=== PATIENT | male | born 1970 | race Caucasian/White ===

== ENCOUNTER 2019-02-08 06:37 | Emergency (ER) | payer OTHER ==
[~2019-02-08] VITALS: Ht 172.7 cm; Wt 90.7 kg
[~2019-02-08 06:37] MED LIST: CHILDREN'S ASPI81 MG PO; LISINOPRIL10 MG PO; TRAZODONE 150150 M1 PO
[2019-02-08] MEDS ORDERED: FLEXERIL PO (06:42)
[2019-02-08 07:24] LABS: HEMATOCRIT 39.8 % (42.0-52.0); RBC 3.76 mil/uL (4.50-6.00)
[2019-02-08 07:26] LABS: ABSOLUTE BASOPHILS 0.1 thou/uL (0.0-0.2); ABSOLUTE EOSINOPHILS 0.3 thou/uL (0.0-0.7); ABSOLUTE LYMPHOCYTES 1.8 thou/uL (0.8-5.3); ABSOLUTE MONOCYTES 0.3 thou/uL (0.0-1.2); ABSOLUTE NEUTROPHILS 3.1 thou/uL (1.6-8.1); EOSINOPHILS 5.4 %; HEMOGLOBIN 13.5 gm/dL (14.0-18.0); LYMPHOCYTES 32.2 %; MCV 105.9 fL (80.0-100.0); MONOCYTES 5.5 %; MPV 7.6 fl. (7.2-11.1); NUCLEATED RBCS 0 /100WBC; PLATELET COUNT* 205 thou/uL (150-400); POLYS 55.9 %; RDW-CV 16.4 % (10.5-14.5); WBC 5.5 thou/uL (4.0-11.0)
[2019-02-08 07:29] LABS: CALCIUM 7.4 mg/dL (8.5-10.1); CREATININE 0.8 mg/dL (0.6-1.3); POTASSIUM 3.9 mmol/L (3.5-5.1)
[2019-02-08 07:29] LABS: URINE BILIRUBIN NEGATIVE (Negative); URINE BLOOD NEGATIVE (Negative); URINE CLARITY CLEAR; URINE COLOR YELLOW; URINE GLUCOSE-RANDOM NEGATIVE (Negative); URINE KETONES NEGATIVE (Negative); URINE LEUKOCYTES-REFLEX NEGATIVE (Negative); URINE NITRITE-REFLEX NEGATIVE (Negative); URINE PROTEIN NEGATIVE (Negative)
[2019-02-08 07:39] LABS: INR 1.1; PROTIME 11.2 Seconds (9.20-11.50)
[2019-02-08 07:40] LABS: ALBUMIN 3.3 g/dL (3.4-5.0); MAGNESIUM 1.8 mg/dL (1.8-2.4); TOTAL PROTEIN 5.7 g/dL (6.4-8.2)
[2019-02-08 08:32] VITALS: BP 104/78
--- NOTE | 2019-02-09 10:11 | EKG ---
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
== END 2019-02-08 08:35 | disposition home or self-care (01) ==
LOC: M.ERS 06:37
PROVIDERS: Emergency Medicine
DX: F10.129 Alcohol abuse with intoxication, unspecified (principal); Y90.5 Blood alcohol level of 100-119 mg/100 ml; I10 Essential (primary) hypertension; Z86.73 Personal history of transient ischemic attack (TIA), and cerebral infarction without residual deficits

== ENCOUNTER 2019-02-09 00:49 | Inpatient (IN) | payer OTHER ==
[~2019-02-09] VITALS: Ht 170.2 cm; Wt 90.2 kg
[2019-02-09] VITALS (7 sets, daily range): BP systolic 104–148; BP diastolic 69–107
[~2019-02-09 00:49] MED LIST changes: +FLEXERIL PO
[2019-02-09 01:19] LABS: ABSOLUTE BASOPHILS 0.1 thou/uL (0.0-0.2); ABSOLUTE EOSINOPHILS 0.4 thou/uL (0.0-0.7); ABSOLUTE LYMPHOCYTES 3.7 thou/uL (0.8-5.3); ABSOLUTE MONOCYTES 0.5 thou/uL (0.0-1.2); ABSOLUTE NEUTROPHILS 4.1 thou/uL (1.6-8.1); BASOPHILS 1.2 %; EOSINOPHILS 4.7 %; HEMATOCRIT 45.6 % (42.0-52.0); LYMPHOCYTES 42.1 %; MCH 36.2 pg (26.0-34.0); MCHC 34.3 g/dL (28.0-37.0); MCV 105.7 fL (80.0-100.0); MPV 7.5 fl. (7.2-11.1); NUCLEATED RBCS 0 /100WBC; PLATELET COUNT* 258 thou/uL (150-400); RBC 4.32 mil/uL (4.50-6.00); RDW-CV 16.7 % (10.5-14.5); WBC 8.8 thou/uL (4.0-11.0)
[2019-02-09 01:22] LABS: HEMOGLOBIN 15.6 gm/dL (14.0-18.0)
[2019-02-09 01:26] LABS: AMP/METHAMP Negative (Negative); BARBITURATES Negative (Negative); BENZODIAZEPINES Negative (Negative); COCAINE Negative (Negative); METHADONE Negative (Negative); OPIATES Negative (Negative); PCP Negative (Negative); THC POSITIVE (Negative)
[2019-02-09 01:26] LABS: ALCOHOL 290 mg/dL (<10); SALICYLATE < 2.8 mg/dL (2.8-20.0)
[2019-02-09 01:28] LABS: ACETAMINOPHEN < 2 ug/mL (10-30)
[2019-02-09 01:31] LABS: CALCIUM 8.4 mg/dL (8.5-10.1); CREATININE 0.8 mg/dL (0.6-1.3); POTASSIUM 3.4 mmol/L (3.5-5.1)
[2019-02-09 01:36] LABS: ALBUMIN 4.2 g/dL (3.4-5.0); TOTAL BILIRUBIN 0.7 mg/dL (<0.1-1.0); TOTAL PROTEIN 7.3 g/dL (6.4-8.2)
[2019-02-09 04:51] LABS: URINE BILIRUBIN NEGATIVE (Negative); URINE BLOOD NEGATIVE (Negative); URINE CLARITY CLEAR; URINE COLOR STRAW; URINE GLUCOSE-RANDOM NEGATIVE (Negative); URINE KETONES NEGATIVE (Negative); URINE LEUKOCYTES NEGATIVE (Negative); URINE NITRITE NEGATIVE (Negative); URINE PROTEIN NEGATIVE (Negative); URINE SPECIFIC GRAVITY <= 1.005 (1.005-1.030); URINE UROBILINOGEN 0.2 E.U./dl (0.2-1.0)
[2019-02-09 04:53] LABS: INR 1.1; PROTIME 11.5 Seconds (9.20-11.50)
[2019-02-09 04:57] LABS: CALCIUM 7.7 mg/dL (8.5-10.1); PHOSPHORUS* 3.2 mg/dL (2.5-4.9)
--- NOTE | 2019-02-09 06:50 | NUR ---
RECEIVED REPORT FROM ED RN. PT TRANSFERRED TO RM 203. PT A&OX4. 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 VSS. ADMISSION HISTORY & PHYSICAL ASSESSMENT COMPLETED AND CHARTED. PT ON RA. PT TRACING ST ON TELE. ORIENTED TO ROOM & CALL LIGHT. CIWA CHARTED. MEDS GIVEN PER MAR. CALL LIGHT WITHIN REACH.
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
--- NOTE | 2019-02-09 13:08 | NUR ---
DISCUSSED WITH TEAM INCLUDING PHYSICIAN. PT WITH 1:[address] FOR IDENTIFIED CONCERNS OF SUICIDAL IDEATION. REMAIN AVAILABLE TO ASSIST NEEDED
--- NOTE | 2019-02-09 19:32 | NUR ---
PT VSS, A&OX4. CIWA SCORE 8-5 MOST OF THE DAY. PT SINUS RHYTHM TO SINUS TACH ON TELE. PT REPORTS RIGHT LEG PAIN. ONE TO ONE SAFETY WATCH FOR SUICIDAL IDEATION. PT REQ INPATIENT REHAB TO STOP DRINKING. PT ACCEPTED BY [facility] IN [place]. PT REPORT GIVEN TO IVAN DEGROOT AT [facility].
--- NOTE | 2019-02-09 23:13 | NUR ---
ASSUMED CARE OF PT AFTER REPORT AT 1930. PT A&OX4. VSS. PHYSICAL ASSESMENT COMPLETED AND CHARTED. PT ON RA. PT TRACING SR ON TELE. PT UPSTANDBY. PT COMPLAINED OF ONE TIME EPISODE OF NAUSEA & VOMITING-MEDS GIVEN PER MAY. CI CHARTED. MAINTAINED ON 1:1 SITTER FOR SAFETY. DENIES ANY PAIN. CALL LIGHT WITHIN REACH.
--- NOTE | 2019-02-09 23:15 | NUR ---
PT TRANSFERRED TO [facility] AT 2210 WITH BELONGINGS.
== END 2019-02-09 22:10 | DRG 896 ==
LOC: M.ERS 00:49 → M.TBA-ER 02:24 → M.2W 02:24
PROVIDERS: Emergency Medicine; ADMIT Internal Medicine
DX: F10.229 Alcohol dependence with intoxication, unspecified (principal); G92 Toxic encephalopathy; F12.90 Cannabis use, unspecified, uncomplicated; E53.8 Deficiency of other specified B group vitamins; F32.9 Major depressive disorder, single episode, unspecified; E83.51 Hypocalcemia; E87.6 Hypokalemia; Z86.73 Personal history of transient ischemic attack (TIA), and cerebral infarction without residual deficits; Z79.899 Other long term (current) drug therapy